=== PATIENT | male | born 1985 | race Caucasian/White ===

== ENCOUNTER 2020-03-04 13:56 | Emergency (ER) | payer OTHER, SELFPAY ==
[2020-03-04] MEDS ORDERED: AMOX/K CLAV 875 MG TAB ONE (14:57)
[2020-03-04] MEDS ORDERED: TETANUS & DIPHTHERIA TOX,ADULT 0.5 ML VIAL ONE (14:57)
--- NOTE | 2020-03-04 15:46 | RAD REPORT ---
EXAM DESCRIPTION: RAD -Hand Left 3 View - 03/04/2020 3:34 pm CLINICAL HISTORY: Left hand pain status post injury FINDINGS: No fracture or dislocation is seen.
--- NOTE | 2020-03-04 16:08 | ER ---
Nurse's Notes [facility] Name: Kathleen Christianson Jr Age: 34 yrs Sex: Male : 1985 Arrival Date: 03/04/2020 Time: 14:00 Bed 7 Private MD: Bishop Arias H Diagnosis: Bitten by dog;Hand Laceration Presentation: 03/04 14:07 Chief complaint: Patient states: dog bite to the left hand by pt's father in laws dog. sv Risk Assessment: Do you want to hurt yourself or someone else? Patient reports no desire to harm self or others. Onset of symptoms was March 04, 2020. 14:07 Acuity: NANDO 4 sv 14:09 Coronavirus screen: Proceed with normal triage. Patient denies a cough. Patient denies sv shortness of breath or difficulty breathing. Patient denies measured and/or subjective temperature greater than 100.4F prior to today's visit. Patient denies travel on a cruise ship or to a country the [facility] currently lists as an affected area. Patient denies contact with known and/or suspected case of COVID-19. Ebola Screen: No symptoms or risks identified at this time. 14:09 Method Of Arrival: Ambulatory sv 14:09 Initial Sepsis Screen: Does the patient meet any 2 criteria? No. Patient's initial sv sepsis screen is negative. Does the patient have a suspected source of infection? Yes: Skin breakdown/wound. 14:12 Note [facility] department informed of dog bite. sv Triage Assessment: 14:14 Bite description: bite sustained to left hand is from animal, was sustained 1-2 hours sv ago. by a dog, animal information: vaccination(s) is current. General: Appears in no apparent distress. comfortable, Behavior is calm, cooperative, appropriate for age. Neuro: Level of Consciousness is awake, alert, obeys commands, Oriented to person, place, time, situation, Gait is steady. Respiratory: Respiratory effort is even, unlabored. Historical: - Allergies: 14:09 No Known Allergies; sv - PMHx: 14:09 None; sv - PSHx: 14:09 None; sv - Immunization history:: Adult Immunizations up to date, Last tetanus immunization: not indicated for visit today. - Social history:: Smoking status: Patient denies any tobacco usage or history of. Screenin:00 Abuse screen: Denies threats or abuse. Denies injuries from another. Nutritional ca1 screening: No deficits noted. Tuberculosis screening: No symptoms or risk factors identified. Fall Risk None identified. Assessment: 15:00 General: Appears in no apparent distress. comfortable, Behavior is calm, cooperative, ca1 appropriate for age. Pain: Complains of pain in left hand. Neuro: Level of Consciousness is awake, alert, obeys commands, Oriented to person, place, time, situation, Appropriate for age. Derm: Skin is healthy with good turgor, Skin is pink, warm \T\ dry. Wound noted palm of left hand. Musculoskeletal: Circulation, motion, and sensation intact. Capillary refill < 3 seconds. Injury Description: Laceration sustained to palm of left hand is jagged, 0.5 to 2.5 cm long, not bleeding, was sustained 30-60 minutes ago. no active bleeding noted at this time. 15:53 Reassessment: Patient appears in no apparent distress at this time. Patient and/or ca1 family updated on plan of care and expected duration. Pain level reassessed. Patient is alert, oriented x 3, equal unlabored respirations, skin warm/dry/pink. Vital Signs: 14:09 BP 131 / 87; Pulse 74; Resp 18; Temp 99.1(O); Pulse Ox 100% ; Weight 105.23 kg; Height sv 6 ft. 0 in. (182.88 cm); 15:24 BP 122 / 75; Pulse 64; Resp 16 S; Pulse Ox 98% on R/A; ca1 16:14 BP 129 / 79; Pulse 61; Resp 16 S; Pulse Ox 100% on R/A; ca1 14:09 Body Mass Index 31.46 (105.23 kg, 182.88 cm) sv ED Course: 14:00 Patient arrived in ED. am2 14:01 Bishop Arias DO is Private Physician. am2 14:08 Triage completed. sv 14:09 Arm band placed on. sv 14:37 Boris Harp PA is PHCP. jmm 14:37 Jose Rivera MD is Attending Physician. jmm 14:43 Danielle Meneses, [place] is Primary Nurse. ca1 14:59 No provider procedures requiring assistance completed. Patient did not have IV access ca1 during this emergency room visit. Wound care: to abrasion, located on left hand was cleaned with Betadine, dressed with Neosporin, 4X4s, Kerlix, Patient tolerated well. 15:00 Patient has correct armband on for positive identification. Bed in low position. Call ca1 light in reach. Side rails up X 1. Pulse ox on. NIBP on. 15:34 Hand Left 3 View XRAY In Process Unspecified. EDAK 16:07 Vern Serrano MD is Referral Physician. alex Administered Medications: 14:50 Drug: Tetanus-Diphtheria Toxoid Adult 0.5 ml {Doctor Of Naturopathic Medicine: [employer]. Exp: ca1 12/11/2021. Lot #: [id number]. } Route: IM; Site: left deltoid; 15:53 Follow up: Response: No adverse reaction ca1 14:59 Drug: Augmentin 875 mg Route: PO; ca1 15:52 Follow up: Response: No adverse reaction ca1 Outcome: 16:07 Discharge ordered by . alex 16:15 Discharged to home ambulatory. ca1 16:15 Condition: stable 16:15 Discharge instructions given to patient, Instructed on discharge instructions, follow up and referral plans. medication usage, wound care, Demonstrated understanding of instructions, follow-up care, medications, wound care, Prescriptions given X 1. 16:15 Patient left the ED. ca1 Signatures: Dispatcher [employer] Stacy Ordoñez, RN RN Boris Harp PA PA jmm Moreno, Amanda am2 Danielle Meneses RN RN ca1 Corrections: (The following items were deleted from the chart) 14:11 14:09 105.23 kg; Height 6 ft. 0 in.; BMI: 31.4; sv sv 14:12 14:09 Pulse 74bpm; Resp 18bpm; Pulse Ox 100%; Temp 99.1F Oral; 105.23 kg; Height 6 ft. sv 0 in.; BMI: 31.4; sv
--- NOTE | 2020-03-04 16:08 | EDPHYS ---
Physician Documentation [facility] Name: Kathleen Christianson Jr Age: 34 yrs Sex: Male : 1985 Arrival Date: 03/04/2020 Time: 14:00 Bed 7 Private MD: Bishop Arias H ED Physician Jose Rivera HPI: 03/04 14:39 This 34 yrs old Male presents to ER via Ambulatory with complaints of Dog jmm Bite. 14:39 The patient was bitten on the left hand. Onset: The symptoms/episode began/occurred jmm acutely, just prior to arrival. Animal information: The animal was reported to appear healthy. Animal's vaccinations are up to date. Secondary to the bite the patient reports multiple puncture wounds. Associated signs and symptoms: Pertinent positives: pain at site, Pertinent negatives: bony tenderness, erythema at site, fever, numbness distal to wound. This is a 34 year old male with no chronic medical conditions that presents to the ED with complaints of left hand pain after a he was bitten by a dog. Patient states this occurred as he was petting the dog. Patient is unsure on tetanus vaccine status. . Historical: - Allergies: 14:09 No Known Allergies; sv - PMHx: 14:09 None; sv - PSHx: 14:09 None; sv - Immunization history:: Adult Immunizations up to date, Last tetanus immunization: not indicated for visit today. - Social history:: Smoking status: Patient denies any tobacco usage or history of. ROS: 14:39 Constitutional: Negative for fever, chills, and weight loss, Cardiovascular: Negative jmm for chest pain, palpitations, and edema, Respiratory: Negative for shortness of breath, cough, wheezing, and pleuritic chest pain. 14:39 MS/extremity: Positive for injury or acute deformity, pain. 14:39 Skin: Positive for laceration(s). 14:39 All other systems are negative. Exam: 14:39 Constitutional: This is a well developed, well nourished patient who is awake, alert, jmm and in no acute distress. Head/Face: atraumatic. Eyes: EOMI, no conjunctival erythema appreciated ENT: Moist Mucus Membranes Neck: Trachea midline, Supple Chest/axilla: Normal chest wall appearance and motion. Cardiovascular: Regular rate and rhythm. No edema appreciated Respiratory: Normal respirations, no respiratory distress appreciated Abdomen/GI: Non distended, soft Back: Normal ROM 14:39 Skin: 2 cm laceration noted to the palmar surface of the left hand, no bleeding is appreciated, . 14:39 Neuro: Orientation: is normal, Mentation: is normal, Memory: is normal. 14:39 Psych: Behavior/mood is pleasant, cooperative. Vital Signs: 14:09 BP 131 / 87; Pulse 74; Resp 18; Temp 99.1(O); Pulse Ox 100% ; Weight 105.23 kg; Height sv 6 ft. 0 in. (182.88 cm); 15:24 BP 122 / 75; Pulse 64; Resp 16 S; Pulse Ox 98% on R/A; ca1 16:14 BP 129 / 79; Pulse 61; Resp 16 S; Pulse Ox 100% on R/A; ca1 14:09 Body Mass Index 31.46 (105.23 kg, 182.88 cm) sv MDM: 14:39 Patient medically screened. [facility] 16:06 Data reviewed: vital signs, nurses notes. Counseling: I had a detailed discussion with [facility] the patient and/or guardian regarding: the historical points, exam findings, and any diagnostic results supporting the discharge/admit diagnosis, radiology results, the need for outpatient follow up, to return to the emergency department if symptoms worsen or persist or if there are any questions or concerns that arise at home. ED course: Wound cleaned and tetanus updated. Patient will be prescribed a course of oral abx and given hand surgery follow up. . 03/04 14:46 Order name: Hand Left 3 View XRAY; Complete Time: 16:03 [facility] 03/04 14:46 Order name: Wound Care; Complete Time: 14:58 [facility] Administered Medications: 14:50 Drug: Tetanus-Diphtheria Toxoid Adult 0.5 ml {[employer]: [employer]. Exp: ca1 12/11/2021. Lot #: [id number]. } Route: IM; Site: left deltoid; 15:53 Follow up: Response: No adverse reaction ca1 14:59 Drug: Augmentin 875 mg Route: PO; ca1 15:52 Follow up: Response: No adverse reaction ca1 Disposition: 16:30 Co-signature as Attending Physician, Jose Rivera MD I agree with the assessment and [facility] plan of care. Disposition: 03/04/20 16:07 Discharged to Home. Impression: Bitten by dog, Hand Laceration. - Condition is Stable. - Discharge Instructions: Animal Bite. - Prescriptions for Augmentin 875- 125 mg Oral Tablet - take 1 tablet by ORAL route every 12 hours for 10 days; 20 tablet. - Medication Reconciliation Form, Thank You Letter, Antibiotic Education, Prescription Opioid Use form. - Follow up: Vern Serrano MD; When: 2 - 3 days; Reason: Recheck today's complaints, Continuance of care, Re-evaluation by your physician. Signatures: Dispatcher [employer] EDStacy Graham RN RN Jose Mayen MD MD cha Mickail, Joel, PA PA jmm Acob, Cheryl RN RN ca1 Corrections: (The following items were deleted from the chart) 16:15 16:07 03/04/2020 16:07 Discharged to Home. Impression: Bitten by dog; Hand Laceration. ca1 Condition is Stable. Forms are Medication Reconciliation Form, Thank You Letter, Antibiotic Education, Prescription Opioid Use. Follow up: Vern Serrano; When: 2 - 3 days; Reason: Recheck today's complaints, Continuance of care, Re-evaluation by your physician. alex
[2020-03-04 16:48] VITALS: TEMP 99.1
[2020-03-04 16:51] VITALS: BP 129/79; O2SAT 100
== END 2020-03-04 16:15 | disposition home or self-care (01) ==
LOC: ER 13:56
DX: S61.412A Laceration without foreign body of left hand, initial encounter (principal); W54.0XXA Bitten by dog, initial encounter; Y93.89 Activity, other specified; Y92.9 Unspecified place or not applicable; Z23 Encounter for immunization
CPT/HCPCS: 90471; 90714; 99284